=== PATIENT | female | born 1965 | race Caucasian/White ===

== ENCOUNTER → 2021-03-29 | Outpatient (CLI) | payer OTHER ==
[~2021-03-29] MED LIST: EXPECTORANT200 MG PO; PREDNISONE 50 M50 MG PO; TESSALON PERLE100 MG PO; VIBRAMYCIN100 MG PO
== END ==
LOC: HEART 5 07:39
DX: I20.9 Angina pectoris, unspecified (principal)
CPT/HCPCS: 78452; A9502; J2785